=== PATIENT | female | born 1995 | race Caucasian/White ===

== ENCOUNTER 2024-03-10 02:54 | Emergency (ER) | payer OTHER ==
[~2024-03-10] VITALS: Ht 160 cm; Wt 68.3 kg
[2024-03-10] MEDS: NS 1,000 ML IV ONE (06:25)
[2024-03-10] MEDS: ACETAMINOPHEN *IV* 1,000 MG in IV 1 EA IV ONE (06:25)
[2024-03-10 07:14] LABS: BASO % 0.4 % (0.0-1.0); EOS # 0.2 10^3/uL (0.0-0.5); EOS % 1.5 % (0.0-3.0); HEMATOCRIT 40.8 % (36.0-47.0); HEMOGLOBIN 14.1 g/dl (12.0-15.5); LYMPH # 1.5 10^3/uL (1.5-5.0); LYMPH % 15.1 % (24.0-44.0); MEAN CORPUSCULAR HEMOGLOBIN 29.9 pg (27.0-33.0); MEAN CORPUSCULAR HGB CONC 34.6 g/dl (32.0-36.5); MEAN CORPUSCULAR VOLUME 86.4 fl (80.0-96.0); MONO # 0.6 10^3/uL (0.0-0.8); NEUTROPHILS # 7.6 10^3/uL (1.5-8.5); NEUTROPHILS % 76.8 % (36.0-66.0); PLATELET COUNT, AUTOMATED 246 10^3/uL (150-450); RED BLOOD COUNT 4.72 10^6/uL (4.00-5.40); WHITE BLOOD COUNT 9.8 10^3/uL (4.0-10.0)
[2024-03-10 07:24] LABS: ERYTHROCYTE SEDIMENTATION RATE 17 mm/hr (0-20)
[2024-03-10 07:55] LABS: BLOOD UREA NITROGEN 5 MG/DL (9-23); CALCIUM LEVEL 8.7 MG/DL (8.5-10.1); CARBON DIOXIDE LEVEL 26 MMOL/L (20-31); CHLORIDE LEVEL 105 MMOL/L (98-107); CREATININE FOR GFR 0.54 MG/DL (0.55-1.30); GLOMERULAR FILTRATION RATE > 60.0 (>60); GLUCOSE, FASTING 76 MG/DL (60-100); POTASSIUM SERUM 4.4 MMOL/L (3.5-5.1); SODIUM LEVEL 140 MMOL/L (136-145)
[2024-03-10 08:02] LABS: MONO REFLEX EBV COMP NEGATIVE (NEGATIVE)
[2024-03-10] MEDS ORDERED: AMOX875T2 PO (08:40)
[2024-03-10] MEDS: AUGMENTIN 875 MG TAB PO ONE (09:03)
[2024-03-10 09:30] VITALS: BP 131/69; TEMP 98; O2SAT 100
[2024-03-11 14:09] LABS: EBV AB TO NUCLEAR ANTIGEN >600.0 U/mL (0.0-17.9); EBV VIRAL CAPSID AG IgG >600.0 U/mL (0.0-17.9); EBV VIRAL CAPSID AG IgM <36.0 U/mL (0.0-35.9)
== END 2024-03-10 09:33 | disposition home or self-care (01) ==
LOC: M ED 02:54
DX: K11.20 Sialoadenitis, unspecified (principal); R22.0 Localized swelling, mass and lump, head; Z79.2 Long term (current) use of antibiotics
CPT/HCPCS: 76536; 80048; 83605; 85025; 85652; 86140; 86308; 86664; 86665; 87040; 87486; 87581; 87633; 87798; 96361; 96365; 99284; J0131